=== PATIENT | female | born 1940 | race Two or more races ===

== ENCOUNTER 2022-09-09 19:21 | Inpatient (IN) | payer OTHER ==
[~2022-09-09] VITALS: Ht 152.4 cm; Wt 75.1 kg
[2022-09-09 19:59] LABS: Basophils # (auto) 0.1 10 ^3/uL (0-0.2); Basophils % (auto) 0.9 % (0.0-2.0); Eosinophils # (auto) 0.2 10 ^3/uL (0-0.8); Eosinophils % (auto) 2.3 % (0.0-7.0); Hematocrit 43.7 % (36.0-46.0); Hemoglobin 14.2 g/dL (12.2-16.2); Lymphocytes % (auto) 29.2 % (10.0-50.0); Mean Corpuscular Hemoglobin 27.7 pg (28.0-32.0); Mean Corpuscular Hgb Conc. 32.4 g/dL (32.0-36.0); Mean Corpuscular Volume 85.5 fL (80.0-100.0); Monocytes # (auto) 0.5 10 ^3/uL (0-1.3); Monocytes % (auto) 7.3 % (0.0-12.0); Neutrophils # (auto) 4.1 10 ^3/uL (1.6-8.6); Neutrophils % (auto) 60.3 % (37.0-80.0); Nucleated Red Blood Cells % 0.1 %; Red Blood Cells 5.11 10^6/uL (4.0-5.20); Red Cell Distribution Width 16.3 % (11.8-14.3); White Blood Cell 6.8 10^3/uL (4.4-10.8)
[2022-09-09 21:20] LABS: Anion Gap 10 (5-15); Blood Urea Nitrogen 23 mg/dL (7-18); Carbon Dioxide 19 mmol/L (21-32); Chloride 110 mmol/L (98-107); Glucose 115 mg/dL (74-106); Potassium 4.3 mmol/L (3.5-5.1); Sodium 139 mmol/L (136-145)
[2022-09-09 21:21] LABS: Alanine Aminotransferase 20 U/L (13-56); Albumin 4.1 g/dL (3.4-5.0); Alkaline Phosphatase 95 U/L (45-117); Aspartate Aminotransferase 11 U/L (15-37); BUN/Creatinine Ratio 23.5; Bilirubin, Total 0.3 mg/dL (0.2-1.0); Calcium 9.5 mg/dL (8.5-10.1); GFR African American 70 mL/min; GFR Non-African American 58 mL/min; Magnesium 2.3 mg/dL (1.6-2.6); Total Protein 8.1 g/dL (6.4-8.2)
[2022-09-09] MEDS ORDERED: ASPirin 325 MG TAB PO ONE (23:30)
[2022-09-09] MEDS ORDERED: PANTOPRAZOLE 40 MG/10 ML VIAL INJ IV ONE (23:30)
[2022-09-09] MEDS ORDERED: LABETALOL HCL 5 MG/ML 4ML SYRINGE IV ONE (23:45)
[2022-09-10] MEDS ORDERED: FUROSEMIDE 20 MG/2 ML VIAL IV ONE (01:30)
[2022-09-10] MEDS ORDERED: NITROGLYCERIN 0.4 MG SL TAB SL PRN (01:45)
[2022-09-10] MEDS: MORPHINE SULFATE INJ 2 MG/ml SYRG IV PRN ×3 (02:05→20:08)
[2022-09-10 07:34] LABS: Calcium 9.4 mg/dL (8.5-10.1); Potassium 4.5 mmol/L (3.5-5.1)
[2022-09-10 07:37] LABS: BUN/Creatinine Ratio 26.1
[2022-09-10] MEDS ORDERED: oxyCODONE HCL 5MG TAB PO PRN ×2 (08:45→10:45)
[2022-09-10] MEDS ORDERED: IOHEXOL 350 MG/ML 100ML IJ ONE (09:21)
[2022-09-10] MEDS ORDERED: ASPirin-EC 81 mg tab PO SCH (10:00)
[2022-09-10 21:01] VITALS: BP 189/59
[2022-09-10] MEDS: ATORVASTATIN 20 MG TAB PO SCH (21:38)
[2022-09-10] MEDS: hydrALAZINE HCL 20 MG/ML VL IV PRN (21:43)
[2022-09-10 22:00] VITALS: BP 189/59
[2022-09-10] MEDS ORDERED: METOPROLOL TARTRATE 25 MG TAB PO SCH (22:00)
[2022-09-10] MEDS ORDERED: OXYB10TA14 (22:17)
[2022-09-10] MEDS ORDERED: ATOR40TA52 PO (22:17)
[2022-09-10] MEDS ORDERED: AMLO-496 PO (22:17)
[2022-09-10] MEDS ORDERED: TRAZ50TA2 PO (22:17)
[2022-09-10] MEDS: ACETAMINOPHEN 325 MG TAB PO PRN (22:52)
[2022-09-11] VITALS (14 sets, daily range): BP systolic 131–179; BP diastolic 52–79
[2022-09-11 03:05] LABS: Basophils # (auto) 0.1 10 ^3/uL (0-0.2); Basophils % (auto) 1.1 % (0.0-2.0); Eosinophils # (auto) 0.2 10 ^3/uL (0-0.8); Eosinophils % (auto) 2.8 % (0.0-7.0); Hematocrit 37.9 % (36.0-46.0); Hemoglobin 12.3 g/dL (12.2-16.2); Lymphocytes # (auto) 1.9 10 ^3/uL (0.4-5.4); Lymphocytes % (auto) 29.4 % (10.0-50.0); Mean Corpuscular Hemoglobin 28.4 pg (28.0-32.0); Mean Corpuscular Hgb Conc. 32.4 g/dL (32.0-36.0); Mean Corpuscular Volume 87.5 fL (80.0-100.0); Monocytes # (auto) 0.5 10 ^3/uL (0-1.3); Monocytes % (auto) 8.4 % (0.0-12.0); Neutrophils # (auto) 3.7 10 ^3/uL (1.6-8.6); Neutrophils % (auto) 58.3 % (37.0-80.0); Red Blood Cells 4.33 10^6/uL (4.0-5.20); Red Cell Distribution Width 16.8 % (11.8-14.3); White Blood Cell 6.4 10^3/uL (4.4-10.8)
[2022-09-11 03:22] LABS: INR 0.97 (0.9-1.15)
[2022-09-11 03:24] LABS: Calcium 9.2 mg/dL (8.5-10.1); Magnesium 2.5 mg/dL (1.6-2.6); Potassium 4.5 mmol/L (3.5-5.1)
[2022-09-11] MEDS: ENOXAPARIN SOD 40 MG/0.4 ML SYRINGE SC SCH (09:07)
[2022-09-11] MEDS ORDERED: ATROPINE SULF 1 MG/10ml SYR IV PRN (09:15)
[2022-09-11] MEDS ORDERED: ATROPINE SULF 1 MG/10ml SYR IV ONE (09:15)
[2022-09-11] MEDS: ASPirin-EC 81 mg tab PO SCH (10:00)
[2022-09-11] MEDS: amLODIPine BESYLATE 5 MG TAB PO SCH (10:17)
[2022-09-11] MEDS: traMADol HCL 50 MG TAB PO PRN ×2 (13:41→22:15)
[2022-09-11] MEDS: ACETAMINOPHEN 325 MG TAB PO PRN (16:14)
[2022-09-11] MEDS: ATORVASTATIN 20 MG TAB PO SCH (21:30)
[2022-09-12] VITALS (34 sets, daily range): BP systolic 122–176; BP diastolic 49–71
[2022-09-12] MEDS: ONDANSETRON HCL 4 MG/2 ML VIAL IV PRN ×2 (03:40→08:21)
[2022-09-12] MEDS: hydrALAZINE HCL 20 MG/ML VL IV PRN ×2 (04:28→09:03)
[2022-09-12 04:36] LABS: Basophils # (auto) 0.1 10 ^3/uL (0-0.2); Basophils % (auto) 0.9 % (0.0-2.0); Eosinophils # (auto) 0.2 10 ^3/uL (0-0.8); Eosinophils % (auto) 2.7 % (0.0-7.0); Hematocrit 40.8 % (36.0-46.0); Hemoglobin 13.1 g/dL (12.2-16.2); Lymphocytes # (auto) 1.6 10 ^3/uL (0.4-5.4); Lymphocytes % (auto) 24.1 % (10.0-50.0); Mean Corpuscular Hgb Conc. 32.2 g/dL (32.0-36.0); Mean Corpuscular Volume 87.1 fL (80.0-100.0); Monocytes # (auto) 0.5 10 ^3/uL (0-1.3); Monocytes % (auto) 8.2 % (0.0-12.0); Neutrophils # (auto) 4.2 10 ^3/uL (1.6-8.6); Neutrophils % (auto) 64.1 % (37.0-80.0); Red Blood Cells 4.68 10^6/uL (4.0-5.20); Red Cell Distribution Width 16.6 % (11.8-14.3); White Blood Cell 6.5 10^3/uL (4.4-10.8)
[2022-09-12 04:47] LABS: INR 0.99 (0.9-1.15)
[2022-09-12 04:52] LABS: Albumin 3.5 g/dL (3.4-5.0); BUN/Creatinine Ratio 32.2; Calcium 9.7 mg/dL (8.5-10.1); Potassium 4.6 mmol/L (3.5-5.1)
[2022-09-12 04:55] LABS: Bilirubin, Total 0.5 mg/dL (0.2-1.0); Total Protein 6.8 g/dL (6.4-8.2)
[2022-09-12] MEDS ORDERED: IODIXANOL 320MG/ML 100ML BTL IV ONE ×2 (09:12→11:13)
[2022-09-12] MEDS ORDERED: LIDOCAINE 2%HCL (LOCAL ANESTH.) INJ 20ML MDV ONE (09:12)
[2022-09-12] MEDS: amLODIPine BESYLATE 5 MG TAB PO SCH (10:00)
[2022-09-12] MEDS: ENOXAPARIN SOD 40 MG/0.4 ML SYRINGE SC SCH (10:00)
[2022-09-12] MEDS: ASPirin-EC 81 mg tab PO SCH (10:00)
[2022-09-12] MEDS ORDERED: HEPARIN SODIUM (PORCINE) 5000 UNITS/ML 1ML VIAL ONE (10:04)
[2022-09-12] MEDS ORDERED: VERAPAMIL 2.5MG/ML INJ 2ML VIAL IV ONE (10:04)
[2022-09-12] MEDS ORDERED: ANGIOMAX 250 MG VIAL IV ONE (10:04)
[2022-09-12] MEDS ORDERED: fentaNYL CITRATE 100 MCG/2 ML VL ONE ×3 (10:05→11:13)
[2022-09-12] MEDS ORDERED: SODIUM CHL 0.9% 0 ML ONE (10:05)
[2022-09-12] MEDS ORDERED: MIDAZOLAM HCL 2MG/2ML 2ml VIAL (1mg/ml) ONE ×3 (10:05→11:13)
[2022-09-12] MEDS: MORPHINE SULFATE INJ 2 MG/ml SYRG IV PRN ×2 (12:42→19:30)
[2022-09-12] MEDS: ATORVASTATIN 20 MG TAB PO SCH (21:30)
[2022-09-13] VITALS (11 sets, daily range): BP systolic 137–170; BP diastolic 51–84
[2022-09-13 04:33] LABS: Basophils # (auto) 0.1 10 ^3/uL (0-0.2); Basophils % (auto) 0.9 % (0.0-2.0); Eosinophils # (auto) 0.1 10 ^3/uL (0-0.8); Hematocrit 40.6 % (36.0-46.0); Hemoglobin 12.9 g/dL (12.2-16.2); Lymphocytes # (auto) 1.6 10 ^3/uL (0.4-5.4); Mean Corpuscular Hemoglobin 27.4 pg (28.0-32.0); Mean Corpuscular Hgb Conc. 31.7 g/dL (32.0-36.0); Mean Corpuscular Volume 86.5 fL (80.0-100.0); Monocytes # (auto) 0.5 10 ^3/uL (0-1.3); Monocytes % (auto) 7.9 % (0.0-12.0); Neutrophils # (auto) 4.5 10 ^3/uL (1.6-8.6); Neutrophils % (auto) 66.2 % (37.0-80.0); Nucleated Red Blood Cells % 0.1 %; White Blood Cell 6.8 10^3/uL (4.4-10.8)
[2022-09-13 04:40] LABS: BUN/Creatinine Ratio 32.5; Calcium 9.8 mg/dL (8.5-10.1); Potassium 4.7 mmol/L (3.5-5.1)
[2022-09-13] MEDS ORDERED: BISACODYL 10 MG RECT SUPP PR ONE (09:45)
[2022-09-13] MEDS: ASPirin-EC 81 mg tab PO SCH (10:00)
[2022-09-13] MEDS: amLODIPine BESYLATE 5 MG TAB PO SCH (10:00)
[2022-09-13] MEDS ORDERED: fentaNYL CITRATE 100 MCG/2 ML VL ONE ×2 (10:25→10:51)
[2022-09-13] MEDS ORDERED: MIDAZOLAM HCL 2MG/2ML 2ml VIAL (1mg/ml) ONE ×3 (10:25→10:59)
[2022-09-13] MEDS ORDERED: VANCOMYCIN 1GM/250ML 250 ML IV ONE (10:39)
[2022-09-13] MEDS ORDERED: VANCOMYCIN HCL 1000 MG VL ONE ×3 (10:39→11:47)
[2022-09-13] MEDS ORDERED: IOHEXOL 350 MG/ML 100ML IJ ONE (10:40)
[2022-09-13] MEDS ORDERED: LIDOCAINE 2%HCL (LOCAL ANESTH.) INJ 20ML MDV ONE ×2 (10:54→11:20)
[2022-09-13] MEDS: MORPHINE SULFATE INJ 2 MG/ml SYRG IV PRN ×2 (12:46→21:12)
[2022-09-13] MEDS: ceFAZolin 1GM/50ML 50 ML IV SCH ×2 (12:54→20:09)
[2022-09-13] MEDS: oxyCODONE HCL 5MG TAB PO PRN (16:42)
[2022-09-13] MEDS ORDERED: POLYETHYLENE GLYCOL 17 GM PWDR PO PRN (20:00)
[2022-09-13] MEDS: ATORVASTATIN 20 MG TAB PO SCH (21:10)
[2022-09-13] MEDS ORDERED: SENNA 8.6 MG TAB PO SCH (22:00)
[2022-09-14] VITALS (7 sets, daily range): BP systolic 142–168; BP diastolic 67–84
[2022-09-14] MEDS: MORPHINE SULFATE INJ 2 MG/ml SYRG IV PRN ×3 (03:09→13:41)
[2022-09-14] MEDS: oxyCODONE HCL 5MG TAB PO PRN ×2 (08:25→16:57)
[2022-09-14] MEDS ORDERED: VANCOMYCIN 1GM/250ML 250 ML IV ONE (10:00)
[2022-09-14] MEDS: ASPirin-EC 81 mg tab PO SCH (10:55)
[2022-09-14] MEDS: amLODIPine BESYLATE 5 MG TAB PO SCH (10:56)
[2022-09-14] MEDS: ONDANSETRON HCL 4 MG/2 ML VIAL IV PRN (10:57)
[2022-09-14] MEDS ORDERED: DOXY-338 PO (16:01)
[2022-09-14] MEDS ORDERED: ASPI-543 PO (16:01)
[2022-09-15] MEDS ORDERED: DOXY-338 PO (13:30)
== END 2022-09-14 18:30 | disposition home or self-care (01) | DRG 243 ==
LOC: ER 19:25 → TELE 09-10 13:55 → TELE-CENTR 09-10 21:15 → ICU WEST 09-11 10:38 → DOU IN ICU 09-13 08:03 → TELE-EAST 09-14 11:15
PROVIDERS: ADMIT Hospitalist; ATTEND Hospitalist
PROC: 4A023N7 Measurement of Cardiac Sampling and Pressure, Left Heart, Percutaneous Approach (ICD-10-PCS; 2022-09-12)
PROC: B211YZZ Fluoroscopy of Multiple Coronary Arteries using Other Contrast (ICD-10-PCS; 2022-09-12)
PROC: B215YZZ Fluoroscopy of Left Heart using Other Contrast (ICD-10-PCS; 2022-09-12)
PROC: B311YZZ Fluoroscopy of Right Brachiocephalic-Subclavian Artery using Other Contrast (ICD-10-PCS; 2022-09-12)
PROC: B41FYZZ Fluoroscopy of Right Lower Extremity Arteries using Other Contrast (ICD-10-PCS; 2022-09-12)
PROC: 03HY32Z Insertion of Monitoring Device into Upper Artery, Percutaneous Approach (ICD-10-PCS; 2022-09-12)
PROC: 04HY32Z Insertion of Monitoring Device into Lower Artery, Percutaneous Approach (ICD-10-PCS; 2022-09-12)
PROC: 0JH606Z Insertion of Pacemaker, Dual Chamber into Chest Subcutaneous Tissue and Fascia, Open Approach (ICD-10-PCS; principal; 2022-09-13)
PROC: 02H63JZ Insertion of Pacemaker Lead into Right Atrium, Percutaneous Approach (ICD-10-PCS; 2022-09-13)
PROC: 02HK3JZ Insertion of Pacemaker Lead into Right Ventricle, Percutaneous Approach (ICD-10-PCS; 2022-09-13)
PROC: B517YZZ Fluoroscopy of Left Subclavian Vein using Other Contrast (ICD-10-PCS; 2022-09-13)
DX: R00.1 Bradycardia, unspecified (principal); I16.9 Hypertensive crisis, unspecified; E78.5 Hyperlipidemia, unspecified; I10 Essential (primary) hypertension; Z20.822 Contact with and (suspected) exposure to COVID-19; Z96.641 Presence of right artificial hip joint; R07.89 Other chest pain; Z90.710 Acquired absence of both cervix and uterus
CPT/HCPCS: 33208; 36225; 36415; 71045; 71275; 75710; 75820; 80048; 80053; 80061; 82962; 83735; 83880; 84484; 85025; 85610; 85730; 86850; 86900; 86901; 87086; 87426; 93005; 93458; 94010; 96374; 96375; 99152; 99153; C1785; C9113; G0378; J0690; J2250; J2405; J3490; Q9967

== ENCOUNTER 2024-08-10 06:18 | Inpatient (IN) | payer OTHER ==
[~2024-08-10] VITALS: Ht 152.4 cm; Wt 70.4 kg
[~2024-08-10 06:18] MED LIST: AMLO1TAB23 PO; ASPI-543 PO; ATOR40TA52 PO; DULO60CA41 PO; HYDR-4798 PO; LISI40TA16 PO; OXYB10TA14; SERT-375 PO; TRAZ-227 PO
[2024-08-10] MEDS: CEFEPIME 1GM/ 50ML 0 ML IV ONE (06:34)
[2024-08-10] MEDS: ACETAMINOPHEN IV 100 ML IV ONE (06:34)
[2024-08-10] MEDS: CEFEPIME 1GM/ 50ML 50 ML IV ONE ×2 (06:45→08:00)
[2024-08-10] MEDS: CELECOXIB 100 MG CAP PO ONE (07:00)
[2024-08-10] MEDS: PREGABALIN CAPSULE 75 MG CAP PO ONE (07:00)
[2024-08-10] MEDS: ACETAMINOPHEN IV 1000 MG/100ML (10MG/ML) IV ONE (07:00)
[2024-08-10] MEDS ORDERED: MORPHINE SULF PF 5 MG/10 ML VIAL ONE (07:07)
[2024-08-10] MEDS: EPINEPHrine HCL 1 MG/1 ML AMP ONE (07:18)
[2024-08-10] MEDS: DexAMETHasone SOD PHOS 4 MG/1ML SDV INJ ONE (07:18)
[2024-08-10] MEDS ORDERED: fentaNYL CITRATE 100 MCG/2 ML VL ONE ×2 (07:24→08:18)
[2024-08-10] MEDS ORDERED: KETAMINE 50mg/ML 1ml syringe ONE ×2 (07:24→08:25)
[2024-08-10] MEDS ORDERED: MIDAZOLAM HCL 2MG/2ML 2ml VIAL (1mg/ml) ONE (07:24)
[2024-08-10] MEDS ORDERED: ePHEDrine SULFATE 50 MG/ML AMP ONE (07:25)
[2024-08-10] MEDS ORDERED: PROPOFOL 10 MG/ML 20 ML IV ONE (07:25)
[2024-08-10] MEDS ORDERED: DexAMETHasone SOD PHOS 10MG/1ML VIAL INJ ONE (07:25)
[2024-08-10] MEDS ORDERED: PHENYLEPHRINE HCL 10 MG/ML VL ONE (07:25)
[2024-08-10] MEDS ORDERED: NITROGLYCERIN 0.4 MG SL TAB SL PRN (07:30)
[2024-08-10] MEDS ORDERED: MORPHINE SULFATE INJ 2 MG/ml SYRG IV PRN (07:30)
[2024-08-10] MEDS ORDERED: HYDROmorphone HCL 2 MG/ML VL/or syr IV PRN ×2 (07:30→09:30)
[2024-08-10] MEDS ORDERED: HYDROcodone-ACET 10/325MG TAB PO PRN (07:30)
[2024-08-10] MEDS ORDERED: ACETAMINOPHEN 325 MG TAB PO PRN (07:30)
[2024-08-10] MEDS: KETOROLAC TROMETH 30 MG/ML 1ML VIAL ONE (07:32)
[2024-08-10] MEDS: BUPIVACAINE 0.25% INJ 50ML VIAL ONE (07:32)
[2024-08-10] MEDS: MORPHINE SULF PF 5 MG/10 ML VIAL ONE (07:32)
[2024-08-10] MEDS: VANCOMYCIN HCL 1000 MG VL ONE (07:32)
[2024-08-10] MEDS: ceFAZolin 2 GM/D5W100ml 100 ML IV ONE (07:45)
[2024-08-10] MEDS ORDERED: MEPERIDINE HCL (50 MG/ML) 1 ML VIAL ONE (07:56)
[2024-08-10] MEDS ORDERED: KETOROLAC TROMETH 30 MG/ML 1ML VIAL ONE (08:33)
[2024-08-10] MEDS ORDERED: HYDROCORTISONE SOD SUCC 100 MG/2ML INJ VIAL ONE (08:33)
[2024-08-10] MEDS: TRANEXAMIC ACID 20 ML ONE (08:35)
[2024-08-10 09:12] VITALS: PULSE 189; RESP 18; O2SAT 98
[2024-08-10] MEDS: oxyCODONE ER 10 MG TAB PO SCH (10:00)
[2024-08-10] MEDS ORDERED: ENOXAPARIN SOD 40 MG/0.4 ML SYRINGE SC SCH (10:00)
[2024-08-10] MEDS ORDERED: CEFEPIME 1GM/ 50ML 50 ML IV SCH (10:00)
[2024-08-10] MEDS: LISINOPRIL 20 MG TAB PO SCH (10:00)
[2024-08-10] MEDS: DULoxetine HCL 30 MG CAP PO SCH (10:00)
[2024-08-10] MEDS: amLODIPine BESYLATE 5 MG TAB PO SCH (10:00)
[2024-08-10] MEDS: ceFAZolin 1GM/50ML 50 ML IV SCH (10:02)
[2024-08-10 13:00] VITALS: BP 109/54; PULSE 62; RESP 14; TEMP 97.5; O2SAT 92
[2024-08-10] MEDS: LACTATED RINGER'S 1,000 ML IV SCH (13:08)
[2024-08-10] MEDS: SODIUM CHLOR 0.9% PF (SALINE LOCK) 10ML VIAL/SYR IV SCH (13:08)
[2024-08-10] MEDS: DOCUSATE SOD 100 MG CAP PO SCH (13:32)
[2024-08-10] MEDS: SERTRALINE HCL 50 MG TAB PO SCH (13:35)
[2024-08-10 16:54] VITALS: BP 105/59; PULSE 66; RESP 19; TEMP 98; O2SAT 93
[2024-08-10 20:00] VITALS: PULSE 62; PULSE 81; RESP 47; O2SAT 93
[2024-08-10 21:00] VITALS: BP 110/46; PULSE 62; RESP 17; TEMP 98.6; O2SAT 93
[2024-08-10] MEDS: traZODone HCL 50 MG TAB PO PRN (21:18)
[2024-08-10] MEDS: ATORVASTATIN 20 MG TAB PO SCH (21:18)
[2024-08-11] VITALS (8 sets, daily range): BP systolic 115–136; BP diastolic 44–74; PULSE 67–88; RESP 16–19; TEMP 97.6–99.1; O2SAT 92–96
[2024-08-11] MEDS: HYDROcodone-ACET 10/325MG TAB PO PRN (01:36)
[2024-08-11 05:08] LABS: Hematocrit 30.2 % (36.0-46.0); Hemoglobin 9.9 g/dL (12.2-16.2)
[2024-08-11 05:28] LABS: Alanine Aminotransferase 10 U/L (7-40); Albumin 3.8 g/dL (3.2-4.8); Alkaline Phosphatase 86 U/L (46-116); Anion Gap 7 (5-15); Aspartate Aminotransferase 27 U/L (13-40); BUN/Creatinine Ratio 18.6 (10.0-20.0); Bilirubin, Total 0.2 mg/dL (0.2-1.0); Blood Urea Nitrogen 18 mg/dL (9-23); Calcium 9.8 mg/dL (8.7-10.4); Carbon Dioxide 24 mmol/L (20-30); Chloride 109 mmol/L (98-107); Glucose 148 mg/dL (74-106); Potassium 4.7 mmol/L (3.5-5.1); Sodium 140 mmol/L (136-145)
[2024-08-11 05:29] LABS: Total Protein 6.5 g/dL (5.7-8.2)
[2024-08-11] MEDS: CEFEPIME 1GM/ 50ML 50 ML IV SCH (09:13)
[2024-08-11] MEDS: DULoxetine HCL 30 MG CAP PO SCH (09:14)
[2024-08-11] MEDS: ONDANSETRON HCL 4 MG/2 ML VIAL IV PRN (09:21)
[2024-08-11] MEDS: ENOXAPARIN SOD 40 MG/0.4 ML SYRINGE SC SCH (10:00)
[2024-08-11 18:54] LABS: Basophils # (auto) 0 10 ^3/uL (0-0.2); Basophils % (auto) 0.1 % (0.0-2.0); Eosinophils # (auto) 0 10 ^3/uL (0-0.8); Hematocrit 27.4 % (36.0-46.0); Hemoglobin 8.9 g/dL (12.2-16.2); Lymphocytes # (auto) 1.8 10 ^3/uL (0.4-5.4); Lymphocytes % (auto) 11.5 % (10.0-50.0); Mean Corpuscular Hemoglobin 27.5 pg (28.0-32.0); Mean Corpuscular Hgb Conc. 32.6 g/dL (32.0-36.0); Mean Corpuscular Volume 84.4 fL (80.0-100.0); Monocytes # (auto) 1.1 10 ^3/uL (0-1.3); Monocytes % (auto) 7.4 % (0.0-12.0); Neutrophils # (auto) 12.4 10 ^3/uL (1.6-8.6); Platelet Count (auto) 395 10^3/uL (140-450); Red Blood Cells 3.24 10^6/uL (4.0-5.20); Red Cell Distribution Width 16.1 % (11.8-14.3); White Blood Cell 15.3 10^3/uL (4.4-10.8)
[2024-08-12] VITALS (7 sets, daily range): BP systolic 102–136; BP diastolic 43–57; PULSE 60–86; RESP 18; TEMP 97.9–98.2; O2SAT 92–96
[2024-08-12 12:36] LABS: Hematocrit 25.6 % (36.0-46.0); Hemoglobin 8.2 g/dL (12.2-16.2)
== END 2024-08-12 18:07 | DRG 470 ==
LOC: SUR 06:18 → TELE 07:21 → TELE-WESTW 13:03
PROVIDERS: ADMIT Orthopaedic Surgery Adult Reconstructive Orthopaedic Surgery; ATTEND Orthopaedic Surgery Adult Reconstructive Orthopaedic Surgery
PROC: 0SRB0JZ Replacement of Left Hip Joint with Synthetic Substitute, Open Approach (ICD-10-PCS; principal; 2024-08-10 07:32)
DX: M16.12 Unilateral primary osteoarthritis, left hip (principal); I10 Essential (primary) hypertension; E78.5 Hyperlipidemia, unspecified; Z79.82 Long term (current) use of aspirin; Z79.899 Other long term (current) drug therapy
CPT/HCPCS: 36415; 72170; 80053; 85014; 85018; 85025; 86850; 86900; 86901; 97110; 97116; 97163; 97530; G0378; J0131; J0171; J1100; J1885; J2250; J2405; J2704; J3490